=== PATIENT | male | born 1975 | race Caucasian/White ===

== ENCOUNTER 2017-06-06 15:27 | Emergency (ER) ==
[2017-06-06 15:33] VITALS: BP 131/81; TEMP 98; BMI 25.2
--- NOTE | 2017-06-06 15:59 | ED.PDOC ---
General ED Provider: Dr. TREVON ELLIS Chief Complaint: Non-specific Complaint Stated Complaint: Approx 2 hours ago, while driving, developed tingling in left upper arm, inner aspect, it sometimes spread to upper back and briefly spread down forearm to hand. At no time did he have chest pain or any other pain. No SOB, no diaphoresis, no weakness, no nausea or vomiting. No PMH of similar problems. Time Seen by Physician: 15:06 Mode of Arrival: Walk-In Information Source: Patient Exam Limitations: No limitations Nursing and Triage Documentation Reviewed and Agree: Yes Neurological Complaint Exam - Neurological Deficit Complaint/Exam Patient Complains of: Reports: Abnormal sensation (tingling) Symptom Onset Unknown: No Symptom Onset Date: 06/06/17 Symptom Onset Time: 14:00 Onset: Sudden Symptoms Are: Resolved Episodes Lasting: Minutes (approx 15 minutes) Initial Severity: Moderate Current Severity: None Location: Reports: LUE (left upper arm (see HPI)) Character: Reports: Tingling. Denies: Numbness, Paresthesia, Motor weakness, Paralysis, Sensory loss, Impaired speech Aggravating: Reports: None Alleviating: Reports: None (resolved spontaneously) Associated Signs and Symptoms: Denies: Confusion, Agitation, Responsiveness, LOC , Headache, Fever, Nuchal rigidity, Recent trauma, Remote trauma, Recent illness Related History: Denies: Similar episode CVA Risk Factors: Reports: None SDH Risk Factors: Reports: Male Related Surgical History: Reports: None Carotid Bruit Present: No Focal Weakness: Present: None Focal Sensory Loss: Present: None Gait: Normal Nystagmus Present: No Gag Reflex Present: Yes [id number]: Normal Findings Romberg Test Positive: No Heel to Toe Normal: Yes Signs of Trauma: No IV t-PA Prescribed: No (not indicated) Differential Diagnoses: Other (thoracic radiculopathy, cardiac etiology) Review of Systems - Review Of Systems Constitutional: Reports: No symptoms Eyes: Reports: No symptoms Ears, Nose, Mouth, Throat: Reports: No symptoms Respiratory: Reports: No symptoms Cardiac: Reports: No symptoms GI: Reports: No symptoms : Reports: No symptoms Musculoskeletal: Reports: No symptoms Skin: Reports: No symptoms Neurological: Reports: Tingling All Other Systems: Reviewed and Negative Past Medical History - Past Medical History Endocrine: Reports: None Cardiovascular: Reports: None Respiratory: Reports: Pneumonia Hematological: Reports: None Gastrointestinal: Reports: None, Other (BILAT HERNIA) Genitourinary: Reports: None Neuro/Psych: Reports: None Musculoskeletal: Reports: None Cancer: Reports: None Other Pertinent Past Medical History: PNEUMONIA remicade every two weeks for lower extremity psorias - Surgical History General Surgical History: Reports: Hernia Repair - Family History Family History: Reports: Unknown - Social History Smoking Status: Former smoker Hx Substance Use: No Alcohol Screening: None Lives: With family - Immunizations Tetanus Shot up to Date: No Influenza Vaccine within 12 Months: No Pneumococcal Vaccine up to Date: No Physical Exam - Physical Exam Appearance: Well-appearing, No pain distress, Well-nourished Ill-appearing: None Pain Distress: None Eyes: NELIDA, EOMI, Conjunctiva clear ENT: Ears normal, Nose normal, Oropharynx normal Neck: Supple Respiratory: Airway patent, Breath sounds clear, Breath sounds equal, Respirations nonlabored Cardiovascular: RRR, Pulses normal, No rub, No murmur Musculoskeletal: Normal strength, ROM intact, No edema, No calf tenderness Skin: Warm, Dry, Normal color Neurological: Sensation intact, Motor intact, Reflexes intact, Cranial nerves intact, Alert, Oriented Psychiatric: Affect appropriate, Mood appropriate Interpretation - EKG Interpretation Time of EKG #1: 16:02 Rate: Normal Rhythm: Sinus Ectopy: None [place]: [place] ST Segment: Normal Interpretation: Sinus arrhythmia Critical Care Note - Critical Care Note Total Time (mins): 0 Course - Course Vital Signs: Temp Pulse Resp BP Pulse Ox 06/06/17 15:28 98.0 F 114 H 20 131/81 98 Departure - Departure Time of Disposition: 16:10 Disposition: HOME SELF-CARE Discharge Problem: Radiculopathy affecting upper extremity Instructions: Paresthesia (ED) Condition: Good Pt referred to PMD for follow-up: No (See doctor if not resolved within 3 days) Additional Instructions: Try ibuproen 800 mg three times a day if symptoms recur Allergies/Adverse Reactions: Allergies No Known Allergies Allergy (Verified 06/06/17 15:33) Home Medications: Ambulatory Orders Infliximab [Remicade] 100 mg IV DIRECTED 12/15/15 Disposition Discussed With: Patient
== END 2017-06-06 16:22 | disposition home or self-care (01) ==
LOC: ED 15:27
DX: M54.10 Radiculopathy, site unspecified (principal)
CPT/HCPCS: 93005; 93010; 99283